=== PATIENT | female | born 1995 | race Caucasian/White ===

== ENCOUNTER 2017-05-24 11:39 | Emergency (ER) | payer BC ==
[2017-05-24] MEDS ORDERED: NS 0.9% 1000 ML* 1,000 ML IV ONE (12:16)
[2017-05-24 12:36] LABS: Hematocrit 39 % (35-47); Hemoglobin 13.2 g/dl (12.0-16.0); Mean Corpuscular HGB Conc 34 g/dl (31-36); Mean Corpuscular Hemoglobin 32 pg (27-31); Mean Corpuscular Volume 94 fL (80-97); Mean Platelet Volume 9 um3 (7.4-10.4); Red Blood Count 4.13 10^6/ul (4.0-5.4); Red Cell Distribution Width 12 % (10.5-15); White Blood Count 8.4 10^3/ul (3.5-10.8)
[2017-05-24 12:53] LABS: ALT 13 U/L (7-52); AST 18 U/L (13-39); Alkaline Phosphatase 52 U/L (34-104); Anion Gap 4 mmol/L (2-11); BUN/Creatinine Ratio 12.1 (8-20); Blood Urea Nitrogen 8 mg/dL (6-24); CO2 Carbon Dioxide 28 mmol/L (22-32); Calcium 9.3 mg/dL (8.6-10.3); Chloride 103 mmol/L (101-111); EGFR African American 148.4 (>60); EGFR Non-African American 115.4 (>60); Globulin 2.7 g/dL (2-4); Glucose 89 mg/dL (70-100); Magnesium 1.8 mg/dL (1.9-2.7); Sodium 135 mmol/L (133-145); Total Protein 6.7 g/dL (6.4-8.9)
[2017-05-24 13:40] LABS: TSH (Thyroid Stimulating Horm) 1.65 mcIU/mL (0.34-5.60)
[2017-05-24 14:50] LABS: Urine Bacteria 1+ (Absent); Urine Bilirubin Negative (Negative); Urine Glucose Negative (Negative); Urine Nitrite Negative (Negative)
--- NOTE | 2017-05-24 15:05 | RAD ---
INDICATION: Syncope. Intracranial injury. COMPARISON: None TECHNIQUE: Noncontrast axial source images were acquired from the skull base to the vertex. FINDINGS: Ventricles/sulci: The ventricles and cisterns are normal in size and configuration for age. Brain parenchyma: There is no focal parenchymal finding, evidence of intracranial mass, or intracranial mass effect. Intracranial hemorrhage:None. Extra-axial spaces: There are no abnormal extra axial fluid collections or evidence of extra-axial mass. Calvarium: There is no calvarial fracture or other calvarial abnormality. Scalp: There is no evidence of scalp or extracalvarial soft tissue abnormality. Paranasal sinuses/mastoid: The paranasal sinuses and mastoid air cells are clear. Other: None. IMPRESSION: NEGATIVE EXAMINATION
--- NOTE | 2017-05-24 15:11 | RAD ---
Indication: Syncope, head injury. CT of the facial bones was obtained in the axial plane. Sagittal and coronal reconstructed images were obtained. Frontal sinuses and nasal arch are intact. No skull base fractures are noted. The maxillary sinuses are unremarkable. The maxilla including the pterygoid plates demonstrate no fracture. The mandible is intact without evidence of fracture. Temporomandibular joints are otherwise unremarkable. Orbits are intact. Visualized cervical spine is unremarkable. IMPRESSION: No fracture of the facial bones is identified.
--- NOTE | 2017-05-24 15:35 | ED ---
Carrie Christensen Nilda, scribed for Irlanda Lucas MD on 05/24/17 at 1230 . Syncope/Near Syncope - HPI Summary HPI Summary: This patient is a 21 year old F BIBA to [facility] with a chief complaint of syncopal episode that occurred this morning. Pt felt lightheaded in the bathroom , and fainted while walking out, hitting her head and face in the process. The patient rates the pain 1/10 in severity. Symptoms aggravated by nothing and alleviated by spontaneous resolution. Patient reports soreness on back of her head and headache. Patient denies SOB, vaginal bleed, and abnormal vaginal discharge. She states that she doesnt think . Pt notes that she ate breakfast and denies unusual amounts of stress. She states she has never had previous episode of syncope. - History Of Current Complaint Chief Complaint: EDSyncope Time Seen by Provider: 05/24/17 11:58 Hx Obtained From: Patient Onset/Duration: Sudden Onset, Resolved Timing: Constant - walking out of bathroom Context: Loss Of Consciousness - resolved Activity At Onset: Other - walking Associated Head Trauma: Yes Aggravating Factor(s): Nothing Alleviating Factor(s): Spontaneous Resolution Associated Signs And Symptoms: Other - soreness on back of her head and headache. Patient denies SOB, vaginal bleed, and abnormal vaginal discharge. - Allergies/Home Medications Allergies/Adverse Reactions: Allergies Allergy/AdvReac Type Severity Reaction Status Date / Time No Known Allergies Allergy Verified 05/24/17 12:06 PMH/Surg Hx/FS Hx/Imm Hx Cardiovascular History: Denies: Hx Hypertension Sensory History: Denies: Hx Legally Blind EENT History: Denies: Hx Deafness Infectious Disease History: No Infectious Disease History: Denies: Traveled Outside the [place] in Last 30 Days - Family History Known Family History: Negative: Hypertension - Social History Occupation: Student Lives: Dormitory/Roommates Alcohol Use: None Substance Use Type: Reports: None Smoking Status (MU): Never Smoked Tobacco Review of Systems Negative: Shortness Of Breath Positive: other - negative vaginal bleeding. Negative: discharge Neurological: Other - head and facial trauma Positive: Headache, Syncope All Other Systems Reviewed And Are Negative: Yes Physical Exam - Summary Physical Exam Summary: General: Well appearing, no pain distress Skin: Warm, Skin Color Reflects Adequate Perfusion, Dry Eyes: EOMI, SUKHJINDER ENT: Pharynx normal, TMs normal, dry blood in left nare but no septal hematoma Dental: chipped tooth Neck: Supple, nontender Respiratory: CTA, breath sounds present, no rhonchi, no wheezes, no rales Cardiovascular: RRR, no murmur, no rub, no gallop Abdomen: Soft, nontender, Non-distended, no guarding, no rebound Bowel: Present Musculoskeletal: TOAN, No edema Neuro: Sensory/motor intact, A&Ox3, CN intact 2-12 Psych: Affect/mood appropriate Triage Information Reviewed: Yes Vital Signs On Initial Exam: Initial Vitals Temp Pulse Resp BP Pulse Ox 97.8 F 90 16 98/68 99 05/24/17 12:00 05/24/17 12:00 05/24/17 12:00 05/24/17 12:00 05/24/17 12:00 Vital Signs Reviewed: Yes - [place] Coma Scale Coma Scale Total: 15 Diagnostics - Vital Signs Vital Signs Temp Pulse Resp BP Pulse Ox 05/24/17 12:00 97.8 F 90 16 98/68 99 - Laboratory Lab Results: Lab Results 05/24/17 05/24/17 05/24/17 Range/Units 12:25 12:25 14:12 WBC 8.4 (3.5-10.8) 10^3/ul RBC 4.13 (4.0-5.4) 10^6/ul Hgb 13.2 (12.0-16.0) g/dl Hct 39 (35-47) % MCV 94 (80-97) fL MCH 32 H (27-31) pg MCHC 34 (31-36) g/dl RDW 12 (10.5-15) % Plt Count 200 (150-450) 10^3/ul MPV 9 (7.4-10.4) um3 Neut % (Auto) 68.5 (38-83) % Lymph % (Auto) 20.6 L (25-47) % [place] % (Auto) 8.2 (1-9) % Eos % (Auto) 2.1 (0-6) % Baso % (Auto) 0.6 (0-2) % Absolute Neuts (auto) 5.7 (1.5-7.7) 10^3/ul Absolute Lymphs (auto) 1.7 (1.0-4.8) 10^3/ul Absolute Monos (auto) 0.7 (0-0.8) 10^3/ul Absolute Eos (auto) 0.2 (0-0.6) 10^3/ul Absolute Basos (auto) 0.1 (0-0.2) 10^3/ul Absolute Nucleated RBC 0 10^3/ul Nucleated RBC % 0 Sodium 135 (133-145) mmol/L Potassium 4.0 (3.5-5.0) mmol/L Chloride 103 (101-111) mmol/L Carbon Dioxide 28 (22-32) mmol/L Anion Gap 4 (2-11) mmol/L BUN 8 (6-24) mg/dL Creatinine 0.66 (0.51-0.95) mg/dL Est GFR ( Amer) 148.4 (>60) Est GFR (Non-Af Amer) 115.4 (>60) BUN/Creatinine Ratio 12.1 (8-20) Glucose 89 (70-100) mg/dL Calcium 9.3 (8.6-10.3) mg/dL Magnesium 1.8 L (1.9-2.7) mg/dL Total Bilirubin 0.80 (0.2-1.0) mg/dL AST 18 (13-39) U/L ALT 13 (7-52) U/L Alkaline Phosphatase 52 (34-104) U/L Total Protein 6.7 (6.4-8.9) g/dL Albumin 4.0 (3.2-5.2) g/dL Globulin 2.7 (2-4) g/dL Albumin/Globulin Ratio 1.5 (1-3) TSH 1.65 (0.34-5.60) mcIU/mL Beta HCG, Quant < 0.60 mIU/mL Urine Color Straw Urine Appearance Clear Urine pH 8.0 (5-9) Ur Specific [place] 1.003 L (1.010-1.030) Urine Protein Negative (Negative) Urine Ketones Negative (Negative) Urine Blood 2+ H (Negative) Urine Nitrate Negative (Negative) Urine Bilirubin Negative (Negative) Urine Urobilinogen Negative (Negative) Ur Leukocyte Esterase Negative (Negative) Urine WBC (Auto) Trace(0-5/hpf) (Absent) Urine RBC (Auto) Trace(0-2/hpf) (Absent) Ur Squamous Epith Cells Present H (Absent) Urine Bacteria 1+ H (Absent) Urine Glucose Negative (Negative) Result Diagrams: 05/24/17 12:25 05/24/17 12:25 Lab Statement: Any lab studies that have been ordered have been reviewed, and results considered in the medical decision making process. - CT Brain CT Interpretation Completed By: Radiologist - negative exam. ED Physician reviewed this report and agrees. Maxillofacial CT Interpretation Completed By: Radiologist - CT Maxillofacial, per radiologist , reveals no fracture of the facial bones is identified. ED physician has reviewed this radiology report and agrees. - EKG 1208 Cardiac Rate: NL EKG Rhythm: Sinus Rhythm - 78bpm ST Segment: Normal Ectopy: None EKG Interpretation: no STEMI, no acute changes. Course/Dx Assessment/Plan: An EKG reveals NSR, 78 bpm, no ectopy, nl ST, no STEMI, no acute changes. CT Brain, per radiologist, reveals negative exam. CT Maxillofacial, per radiologist, reveals no fracture of the facial bones is identified. ED physician has reviewed these radiology reports and agrees. 21 yo with chipped tooth after syncopal episode normal ct's and labs ok to go home. ED physician has reviewed these reports and agrees. - Diagnoses Provider Diagnoses: Syncope, Broken tooth injury, Head injury Discharge - Discharge Plan Condition: Stable Disposition: HOME Referrals: No Primary Care Phys,NOPCP [Primary Care Provider] - The documentation as recorded by the Carrie stroud Nilda accurately reflects the service I personally performed and the decisions made by me, Irlanda Lucas MD.
[2017-05-24 15:56] VITALS: BP 112/62
== END 2017-05-24 15:56 | disposition home or self-care (01) ==
LOC: ED 11:39
DX: R55 Syncope and collapse (principal); S02.5XXA Fracture of tooth (traumatic), initial encounter for closed fracture; S09.90XA Unspecified injury of head, initial encounter; W19.XXXA Unspecified fall, initial encounter; Y92.89 Other specified places as the place of occurrence of the external cause
CPT/HCPCS: 36415; 70450; 70486; 80053; 81003; 81015; 83735; 84443; 84702; 85025; 87086; 93005; 96360; 99282